=== PATIENT | male | born 1975 | race Caucasian/White ===

== ENCOUNTER 2016-12-17 11:46 | Emergency (ER) | payer OTHER ==
[~2016-12-17] VITALS: Ht 185.4 cm; Wt 111.2 kg
[~2016-12-17 11:46] MED LIST: NOHOMEMEDS; VYVANSE40 MG PO
[2016-12-17] MEDS ORDERED: NORCO 5/3251 TABLET PO (12:09)
[2016-12-17] MEDS ORDERED: PEN-VEE K,VEET500 MG PO (12:09)
[2016-12-17 12:23] VITALS: BP 146/90
== END 2016-12-17 12:22 | disposition home or self-care (01) ==
LOC: EME 11:46
DX: K02.9 Dental caries, unspecified (principal)
CPT/HCPCS: 99281; 99284

== ENCOUNTER 2017-03-01 11:55 | Emergency (ER) | payer OTHER ==
[~2017-03-01] VITALS: Ht 185.4 cm; Wt 106.3 kg
[~2017-03-01 11:55] MED LIST changes: +NORCO 5/3251 TABLET PO; +PEN-VEE K,VEET500 MG PO
[2017-03-01] MEDS ORDERED: ULTRAM50 MG PO (12:30)
[2017-03-01] MEDS ORDERED: PEN-VEE K,VEET500 MG PO (12:30)
[2017-03-01 12:54] VITALS: BP 147/98
== END 2017-03-01 12:56 | disposition home or self-care (01) ==
LOC: EME 11:55
DX: K08.89 Other specified disorders of teeth and supporting structures (principal); S02.5XXA Fracture of tooth (traumatic), initial encounter for closed fracture
CPT/HCPCS: 99281; 99283

== ENCOUNTER 2017-05-18 02:03 | Inpatient (IN) | payer OTHER ==
[~2017-05-18] VITALS: Ht 185.4 cm; Wt 113.4 kg
[~2017-05-18 02:03] MED LIST changes: +ULTRAM50 MG PO
[2017-05-18 03:34] LABS: BASOPHIL COUNT 0.1 K/uL (0-0.1); EOSINOPHIL (%) 1.1 % (0-5); EOSINOPHIL COUNT 0.2 K/uL (0-0.3); HEMATOCRIT 42.7 % (38.0-50.0); IMMATURE GRANULOCYTE (%) 0.5 % (0.0-0.7); IMMATURE GRANULOCYTE COUNT 0.1 K/uL; INSTRUMENT ABS NEUTROPHIL CT 11.9 K/uL; LYMPHOCYTE COUNT 2.3 K/uL (1.0-2.8); MCH 31.5 PG (29.0-34.0); MCHC 34.4 G/DL (30.0-36.0); MCV 91.4 FL (86-99); MEAN PLAT.VOLUME 10.7 uM^3 (9.0-12.4); MONOCYTE (%) 9.7 % (3-12); MONOCYTE COUNT 1.6 K/uL (0-0.8); NEUTROPHIL (%) 74.3 % (45-76); NEUTROPHIL COUNT 11.9 K/uL (1.8-6.4); PLATELET COUNT 210 K/uL (156-360); RBC DIS.WIDTH-SD 43.3 % (39-53); RED BLOOD COUNT 4.67 M/uL (4.00-5.50)
[2017-05-18 03:44] LABS: CHLORIDE 109 mEq/L (99-109); POTASSIUM 4.4 mEq/L (3.7-5.4); SODIUM 140 mEq/L (136-147)
[2017-05-18 03:46] LABS: GLUCOSE 123 mg/dL (70-99)
[2017-05-18 03:48] LABS: ANION GAP 10 MEQ/L (2-14); TOTAL BILIRUBIN 0.5 mg/dL (0.0-1.0)
[2017-05-18 03:50] LABS: ALKALINE PHOSPHATASE 85 IU/L (3-129); GFR ESTIMATE (CALCULATED) > 59 mL/min/
[2017-05-18 03:51] LABS: UREA NITROGEN (BUN) 9 mg/dL (9-23)
[2017-05-18 06:01] VITALS: BP 127/66
[2017-05-18 08:54] LABS: ANION GAP 8 MEQ/L (2-14); CHLORIDE 110 MEQ/L (99-109); GFR ESTIMATE (CALCULATED) > 59 mL/min/; GLUCOSE 160 mg/dL (70-99); POTASSIUM 4.1 MEQ/L (3.7-5.4); SAMPLE HEMOLYSIS CHECK 0; SAMPLE ICTERIC CHECK 0; SAMPLE LIPEMIA CHECK 0; SODIUM 140 MEQ/L (136-147); UREA NITROGEN (BUN) 8 mg/dL (9-23)
[2017-05-18 09:08] LABS: BASOPHIL COUNT 0.1 K/uL (0-0.1); EOSINOPHIL (%) 1.3 % (0-5); EOSINOPHIL COUNT 0.2 K/uL (0-0.3); HEMATOCRIT 37.2 % (38.0-50.0); IMMATURE GRANULOCYTE (%) 0.6 % (0.0-0.7); IMMATURE GRANULOCYTE COUNT 0.1 K/uL; INSTRUMENT ABS NEUTROPHIL CT 9.9 K/uL; LYMPHOCYTE COUNT 3.4 K/uL (1.0-2.8); MCH 31.2 PG (29.0-34.0); MCHC 33.9 G/DL (30.0-36.0); MCV 92.1 FL (86-99); MEAN PLAT.VOLUME 10.7 uM^3 (9.0-12.4); MONOCYTE COUNT 1.4 K/uL (0-0.8); NEUTROPHIL (%) 66.1 % (45-76); NEUTROPHIL COUNT 9.9 K/uL (1.8-6.4); PLATELET COUNT 187 K/uL (156-360); RBC DIS.WIDTH-CV 13.1 % (11.8-14.6); RBC DIS.WIDTH-SD 44.3 % (39-53); RED BLOOD COUNT 4.04 M/uL (4.00-5.50); WHITE BLOOD COUNT 14.9 K/uL (4.1-10.2)
[2017-05-18 11:35] VITALS: BP 138/78
[2017-05-18 15:47] VITALS: BP 134/72
[2017-05-18] MEDS ORDERED: ADVIL200 MG PO (16:57)
[2017-05-18] MEDS ORDERED: ICY HOT CREAM35.4 G1 TP (16:58)
[2017-05-18 19:59] VITALS: BP 136/85
[2017-05-19 00:38] VITALS: BP 136/70
[2017-05-19 08:04] VITALS: BP 131/83
[2017-05-19 08:38] LABS: HEMATOCRIT 39.6 % (38.0-50.0); MCH 32.5 PG (29.0-34.0); MCHC 35.6 G/DL (30.0-36.0); MCV 91.2 FL (86-99); MEAN PLAT.VOLUME 10.6 uM^3 (9.0-12.4); PLATELET COUNT 213 K/uL (156-360); RBC DIS.WIDTH-SD 42.9 % (39-53); RED BLOOD COUNT 4.34 M/uL (4.00-5.50); WHITE BLOOD COUNT 6.2 K/uL (4.1-10.2)
[2017-05-19 09:02] LABS: ANION GAP 8 MEQ/L (2-14); CHLORIDE 103 MEQ/L (99-109); GFR ESTIMATE (CALCULATED) > 59 mL/min/; GLUCOSE 113 mg/dL (70-99); POTASSIUM 4.6 MEQ/L (3.7-5.4); SAMPLE HEMOLYSIS CHECK 0; SAMPLE ICTERIC CHECK 0; SAMPLE LIPEMIA CHECK 0; SODIUM 137 MEQ/L (136-147); UREA NITROGEN (BUN) 7 mg/dL (9-23)
[2017-05-19 11:20] VITALS: BP 134/74
[2017-05-19 13:56] LABS: ADD MIUA? NO; BILIRUBIN NEGATIVE; BLOOD NEGATIVE; COLOR YELLOW ((YELLOW)); GLUCOSE (STRIP) NEGATIVE; KETONES NEGATIVE; LEUKOCYTES NEGATIVE; NITRITE NEGATIVE; PROTEIN (STRIP) NEGATIVE; SPECIFIC GRAVITY 1.013 (1.000-1.030); UCUL ADDED? NO; UROBILINOGEN 0.2 MG/DL (0.2-1.0)
[2017-05-19 15:42] VITALS: BP 135/77
[2017-05-19 23:24] VITALS: BP 120/96
[2017-05-20 07:12] LABS: GFR ESTIMATE (CALCULATED) > 59 mL/min/
[2017-05-20 08:25] VITALS: BP 118/75
[2017-05-20] MEDS ORDERED: CHLORZOXAZONE500 MG PO (13:12)
[2017-05-20] MEDS ORDERED: NICOTINE PATCH1 EAC1 TD (13:12)
[2017-05-20] MEDS ORDERED: LIDOCAINE1 EACH TD (13:13)
[2017-05-20] MEDS ORDERED: AUGMENTIN875 MG PO (13:14)
== END 2017-05-20 14:05 | disposition home or self-care (01) | DRG 603 ==
LOC: EME 02:03 → 3EAST 04:45 → EDOF 04:45 → ENRESERV 04:46 → 3EAST 05:48
PROVIDERS: Emergency Medicine; Internal Medicine; Physician Assistant
DX: L03.317 Cellulitis of buttock (principal); L03.315 Cellulitis of perineum; F17.210 Nicotine dependence, cigarettes, uncomplicated; F90.9 Attention-deficit hyperactivity disorder, unspecified type; K76.0 Fatty (change of) liver, not elsewhere classified; M75.42 Impingement syndrome of left shoulder; D18.03 Hemangioma of intra-abdominal structures; R73.9 Hyperglycemia, unspecified; M25.812 Other specified joint disorders, left shoulder; M71.9 Bursopathy, unspecified; M75.92 Shoulder lesion, unspecified, left shoulder; K40.20 Bilateral inguinal hernia, without obstruction or gangrene, not specified as recurrent
CPT/HCPCS: 71020; 73030; 74177; 80048; 80048 91; 80053; 80202; 81003; 82565; 83605; 85025; 85025 91; 85027; 87040; 87070; 87075; 87076; 87205; 99281; 99285; J1170; J1644; J1885; J2270; J2543; J3370; J7030; J7050

== ENCOUNTER 2017-08-31 13:49 | Emergency (ER) | payer OTHER ==
[~2017-08-31] VITALS: Ht 185.4 cm; Wt 109.3 kg
[~2017-08-31 13:49] MED LIST changes: +ADVIL200 MG PO; +AUGMENTIN875 MG PO; +CHLORZOXAZONE500 MG PO; +ICY HOT CREAM35.4 G1 TP; +LIDOCAINE1 EACH TD; +NICOTINE PATCH1 EAC1 TD
[2017-08-31] MEDS ORDERED: NAPROSYN500 MG PO (15:57)
[2017-08-31] MEDS ORDERED: PREDNISONE50 MG PO (15:57)
[2017-08-31] MEDS ORDERED: TRAMADOL HCL50 MG PO (16:00)
[2017-08-31 16:29] VITALS: BP 148/80
== END 2017-08-31 16:32 | disposition home or self-care (01) ==
LOC: EME 13:49
DX: S46.001A Unspecified injury of muscle(s) and tendon(s) of the rotator cuff of right shoulder, initial encounter (principal); X50.0XXA Overexertion from strenuous movement or load, initial encounter; Y99.0 Civilian activity done for income or pay; F17.200 Nicotine dependence, unspecified, uncomplicated
CPT/HCPCS: 73030; J1885